=== PATIENT | male | born 1980 | race Caucasian/White ===

== ENCOUNTER → 2022-04-04 | Outpatient (CLI) | payer BC ==
[2022-04-04 13:15] LABS: RED BLOOD COUNT 4.77 M/UL (4.20-5.50); WHITE BLOOD COUNT 8.2 K/UL (4.5-11.0)
== END ==
LOC: LAB 12:52
PROVIDERS: Nurse Practitioner
DX: L03.311 Cellulitis of abdominal wall (principal)
CPT/HCPCS: 36415; 85025